=== PATIENT | female | born 1975 | race Caucasian/White ===

== ENCOUNTER 2018-01-23 19:43 | Emergency (ER) | payer OTHER ==
[~2018-01-23] VITALS: Ht 157.5 cm; Wt 70.3 kg
[~2018-01-23 19:43] MED LIST: DEPAKOTE ER250 MG; DILANTIN100 MG
[2018-01-23] MEDS ORDERED: DILANTIN100 MG PO ×2 (19:58→19:59)
[2018-01-23] MEDS ORDERED: ATORVASTATIN CA10 MG PO (19:59)
[2018-01-23] MEDS ORDERED: DEPAKOTE ER500 MG PO (19:59)
[2018-01-23] MEDS ORDERED: LEVETIRACETAM500 MG PO (20:00)
[2018-01-23] MEDS ORDERED: RISPERIDONE1 MG PO (20:00)
== END 2018-01-23 20:28 | disposition home or self-care (01) ==
LOC: ER 19:43
DX: M54.2 Cervicalgia (principal); S16.1XXA Strain of muscle, fascia and tendon at neck level, initial encounter; Y04.0XXA Assault by unarmed brawl or fight, initial encounter; Y92.008 Other place in unspecified non-institutional (private) residence as the place of occurrence of the external cause
CPT/HCPCS: 99281

== ENCOUNTER 2018-11-08 12:11 | Observation (INO) | payer OTHER ==
[~2018-11-08] VITALS: Ht 167.6 cm; Wt 53.1 kg
[~2018-11-08 12:11] MED LIST changes: +ATORVASTATIN CA10 MG PO; +DEPAKOTE ER500 MG PO; +DILANTIN100 MG PO; +LEVETIRACETAM500 MG PO; +RISPERIDONE1 MG PO
--- OUTSIDE RECORDS SUMMARY | 2018-11-08 12:13 | XMS REPORT ---
Author Author Admin, [place] Organization [facility] Address [address] [address] Phone Allergies, Adverse Reactions, Alerts Allergy Name Reaction Description Start Date Severity Status Provider No Known Allergies Calvin Zepeda MD Conditions or Problems Problem Name Problem Code Onset Date Status Entry Date Provider Comment Standard Description Annotate BIPOLAR AND RELATED DISORDER, D/T MED COND, W/ MIXED FEATURES Active Calvin Zepeda MD Mood disorder in conditions classified elsewhere CANNABIS USE DISORDER, MODERATE Active Calvin Zepeda MD Neglect of personal hygiene V69.8 Active Zuleika Blair MD Other problems related to lifestyle Poor dentition 520.9 Active Zuleika Blair MD Unspecified disorder of tooth development and eruption Head lice 132.0 Active Zuleika Blair MD Pediculus capitis [head louse] Bipolar disorder 296.80 Active Zuleika Blair MD Bipolar disorder, unspecified Epilepsy hx of 345.90 Active Zuleika Blair MD Epilepsy, unspecified, without mention of intractable epilepsy Hyperlipidemia 272.4 Active Zuleika Blair MD Other and unspecified hyperlipidemia Liver cirrhosis 571.5 Active Zuleika Blair MD Cirrhosis of liver without mention of alcohol Substance dependency 304.90 Active Zuleika Blair MD Unspecified drug dependence, unspecified use Current marijhuana user Medication List Medication Instructions Start Date Stop Date Generic Name NDC Status Provider Patient Instruction IVERMECTIN 3 MG ORAL TABLET 3 tablets once weekly for 2 weeks IVERMECTIN 26444598269 Active Zuleika Blair MD Active SKLICE 0.5 % EXTERNAL LOTION Apply sufficient amount (up to 1 tube) to completely cover dry scalp and hair.Leave for 10 minutes and wash. Use only one time only IVERMECTIN 55841040269 Active Zuleika Blair MD Active ATORVASTATIN CALCIUM 10 MG ORAL TABLET one tablet once daily ATORVASTATIN CALCIUM 02361288650 Active Zuleika Blair MD Active DILANTIN 100 MG ORAL CAPSULE 1 tablet in AM and 2 in PM PHENYTOIN SODIUM EXTENDED 34318185548 Active Zuleika Blair MD Active LEVETIRACETAM 500 MG ORAL TABLET one tablet twice daily LEVETIRACETAM 36037858688 Active Zuleika Blair MD Active RISPERDAL 2 MG ORAL TABLET Take 1 tab By Mouth Twice a Day RISPERIDONE 65121584846 Active Calvin Zepeda MD Active DEPAKOTE ER 500 MG ORAL TABLET EXTENDED RELEASE 24 HOUR TAKE 1 TABLET BY MOUTH TWICE A DAY DIVALPROEX SODIUM 88043819776 Active Zuleika Blair MD Active Vital Signs Date Name Value Unit Range Description blood pressure, diastolic 60 mm[Hg] BP san blood pressure, systolic 91 mm[Hg] BP sys height E&M 66 [in_us] Bdy height pulse rate E&M 106 /min Heart rate weight E&M 114 [lb_av] Weight Measured blood pressure, diastolic 64 mm[Hg] BP san blood pressure, systolic 92 mm[Hg] BP sys height E&M 66 [in_us] Bdy height pulse rate E&M 94 /min Heart rate weight E&M 113.38 [lb_av] Weight Measured blood pressure, diastolic 65 mm[Hg] BP san blood pressure, systolic 96 mm[Hg] BP sys height E&M 66 [in_us] Bdy height pulse rate E&M 110 /min Heart rate respiratory rate E&M 14 /min Resp rate temperature E&M 98.8 [degF] Body temperature weight E&M 116 [lb_av] Weight Measured blood pressure, diastolic 70 mm[Hg] BP san blood pressure, systolic 108 mm[Hg] BP sys height E&M 66 [in_us] Bdy height pulse rate E&M 98 /min Heart rate respiratory rate E&M 16 /min Resp rate temperature E&M 98.4 [degF] Body temperature weight E&M 118.40 [lb_av] Weight Measured blood pressure, diastolic 65 mm[Hg] BP san blood pressure, systolic 93 mm[Hg] BP sys height E&M 66 [in_us] Bdy height pulse rate E&M 97 /min Heart rate respiratory rate E&M 14 /min Resp rate temperature E&M 98.0 [degF] Body temperature weight E&M 115 [lb_av] Weight Measured Diagnostic Results Date Name Value Unit Range Description Lab Report: CBC With Differential/Platelet, Comp. Metabolic Panel (14), ... - Hematology hematocrit, blood 40.7 % 34.0-46.6 Lab Report: CBC With Differential/Platelet, Comp. Metabolic Panel (14), ... - Chemistry sodium, serum 141 mmol/L 134-144 Lab Report: CBC With Differential/Platelet, Comp. Metabolic Panel (14), ... - Hematology neutrophils as percent of blood leukocytes 61 % Not Estab. basophils as percent of blood leukocytes 1 % Not Estab. Lab Report: CBC With Differential/Platelet, Comp. Metabolic Panel (14), ... - Chemistry very low density lipoproteins 15 mg/dL 5-40 carbon dioxide, venous blood 24 mmol/L 20-29 hepatitis B surface antigen Negative Negative chloride, serum 102 mmol/L 96-106 triglyceride, serum, fasting 74 mg/dL 0-149 calcium, serum 9.0 mg/dL 8.7-10.2 urea nitrogen, blood 8 mg/dL 6-24 alanine aminotransferase (SGPT), serum 10 U/L 0-32 Lab Report: CBC With Differential/Platelet, Comp. Metabolic Panel (14), ... - Hematology mean corpuscular hemoglobin, RBC 30.0 pg 26.6-33.0 mean corpuscular hemoglobin concentration, RBC 33.2 G/DL % 31.5-35.7 Lab Report: CBC With Differential/Platelet, Comp. Metabolic Panel (14), ... - Chemistry protein, total, serum 6.4 g/dL 6.0-8.5 alkaline phosphatase, serum 85 U/L 39-117 Lab Report: CBC With Differential/Platelet, Comp. Metabolic Panel (14), ... - Hematology erythrocyte (RBC) count 4.50 X10E6/UL 10*6/mm3 3.77-5.28 hemoglobin, blood 13.5 g/dL 11.1-15.9 Lab Report: CBC With Differential/Platelet, Comp. Metabolic Panel (14), ... - Serology hepatitis C antibody, serum <0.1 0.0-0.9 Lab Report: CBC With Differential/Platelet, Comp. Metabolic Panel (14), ... - Chemistry Absolute Neutrophils 5.2 X10E3/UL 10*3/uL 1.4-7.0 LDL cholesterol, serum 126 mg/dL 0-99 urea nitrogen/creatinine ratio, serum 13 9-23 Lab Report: CBC With Differential/Platelet, Comp. Metabolic Panel (14), ... - Hematology lymphocytes as percent of blood leukocytes 25 % Not Estab. mean corpuscular volume, RBC 90 fL 79-97 Lab Report: CBC With Differential/Platelet, Comp. Metabolic Panel (14), ... - Chemistry HDL cholesterol, serum 76 mg/dL >39 Lab Report: CBC With Differential/Platelet, Comp. Metabolic Panel (14), ... - Genetics/fertility eGFR if 125 mL/min/1.73m2 >59 Lab Report: CBC With Differential/Platelet, Comp. Metabolic Panel (14), ... - Serology hepatitis B virus core antibody, IgM, PT, serum, quantitative Negative Negative Lab Report: CBC With Differential/Platelet, Comp. Metabolic Panel (14), ... - Hematology basophil count, absolute 0.1 x10E3/uL 0.0-0.2 monocytes as percent of blood leukocytes 9 % Not Estab. Lab Report: CBC With Differential/Platelet, Comp. Metabolic Panel (14), ... - Chemistry globulin, serum 2.7 1.5-4.5 creatinine, serum 0.63 mg/dL 0.57-1.00 albumin/globulin ratio, serum 1.4 1.2-2.2 Estimated Glomerular Filtration Rate (calc) 109 mL/min/1.73m2 >59 cholesterol, serum 217 mg/dL 100-199 Lab Report: CBC With Differential/Platelet, Comp. Metabolic Panel (14), ... - Serology hepatitis A antibody, IgM Negative Negative Lab Report: CBC With Differential/Platelet, Comp. Metabolic Panel (14), ... - Chemistry bilirubin, serum, total <0.2 mg/dL mg/dL 0.0-1.2 Lab Report: CBC With Differential/Platelet, Comp. Metabolic Panel (14), ... - Hematology Eosinophil Absolute Count 0.4 X10E3/UL 10*3/uL 0.0-0.4 eosinophils as percent of blood leukocytes 4 % Not Estab. Lab Report: CBC With Differential/Platelet, Comp. Metabolic Panel (14), ... - Chemistry blood glucose, random 106 mg/dL 65-99 aspartate aminotransferase (SGOT), serum 16 U/L 0-40 Lab Report: CBC With Differential/Platelet, Comp. Metabolic Panel (14), ... - Hematology red blood cell distribution width 15.0 % 12.3-15.4 leukocyte count, blood 8.5 X10E3/UL 10*3/mm3 3.4-10.8 Lab Report: CBC With Differential/Platelet, Comp. Metabolic Panel (14), ... - Chemistry potassium, serum 3.9 mmol/L 3.5-5.2 Lab Report: CBC With Differential/Platelet, Comp. Metabolic Panel (14), ... - Hematology monocyte count, blood, automated 0.8 X10E3/UL 10*3/uL 0.1-0.9 Lab Report: CBC With Differential/Platelet, Comp. Metabolic Panel (14), ... - Chemistry albumin, serum 3.7 g/dL 3.5-5.5 immature granulocytes, percentage of total cells, blood 0 % Not Estab. Lab Report: CBC With Differential/Platelet, Comp. Metabolic Panel (14), ... - Hematology platelet count 195 X10E3/UL 10*3/mm3 389-823 9986/06/04 lymphocyte count, blood, automated 2.1 X10E3/UL 10*3/mm3 0.7-3.1 Encounters Date Encounter Provider Code Facility 11:19:21 CDT Est Patient Exp Problem - 27474 Calvin Zepeda MD CPT-54525 [facility] 10:20:03 CDT Ofc Vst, Est Level III Zuleika Blair MD CPT-92268 [facility] 16:24:03 CDT Ofc Vst, Est Level III Zuleika Blair MD CPT-55052 [facility] 14:10:28 CDT Ofc Vst, New Level IV Zuleika Blair MD CPT-68428 [facility] Procedures Code Procedure Name Date Entry Date Standard Description CPT-81489 Diagnostic evaluation with medical - 89165 14:49:19 CDT
--- OUTSIDE RECORDS SUMMARY | 2018-11-08 12:13 | XMS REPORT ---
Author Author [facility] Address Unknown Phone Unavailable Care Team Providers Care Insurance Coder Name Role Phone Unavailable Unavailable Payers Payer Name Policy Type Policy Number Effective Date Expiration Date Problems This patient has no known problems. Allergies, Adverse Reactions, Alerts Allergy Name Allergy Type Status Severity Reaction(s) Onset Date Inactive Date Treating Clinician Comments No Known Allergies DA Active U 2018-08-04 00:00:00 No Known Allergies DA Active U 2017-02-14 00:00:00 Medications This patient has no known medications. Results Test Description Test Time Test Comments Text Results Atomic Results Result Comments VALPROIC ACID (DEPAKENE) 2018-08-04 15:47:00 VALPROIC ACID (DEPAKENE) (test code=VALP) 52.0 mcg/mL 50.0-100.0
[2018-11-08] MEDS ORDERED: SODIUM CHLORIDE 0.9% 1000ML 1,000 ML IV STA (12:23)
[2018-11-08 13:03] LABS: BASOPHILS % 0.4 % (0.0-1.0); EOSINOPHILS # (AUTO) 0.3 (0.0-0.4); EOSINOPHILS % 4.6 % (0.0-6.0); HEMATOCRIT 43.6 % (34.2-44.1); HEMOGLOBIN 14.8 g/dL (12.0-16.0); LYMPHOCYTES # (AUTO) 2.3 (1.0-3.2); LYMPHOCYTES % 32.6 % (18.0-39.1); MEAN CORPUSCULAR HEMOGLOBIN 30.8 pg (28-32); MEAN CORPUSCULAR HGB CONC 33.9 g/dL (31-35); MEAN CORPUSCULAR VOLUME 90.6 fL (81-99); MONOCYTES # (AUTO) 0.7 (0.2-0.8); MONOCYTES % 9.3 % (4.4-11.3); NEUTROPHILS # (AUTO) 3.8 (2.1-6.9); PLATELET COUNT 124 x10e3/uL (140-360); RED BLOOD COUNT 4.81 x10e6/uL (3.6-5.1); RED CELL DISTRIBUTION WIDTH 14.6 % (11.7-14.4)
[2018-11-08 13:19] LABS: BILIRUBIN,URINE MODERATE (NEGATIVE); CLARITY,URINE SL CLOUDY (CLEAR); COLOR,URINE YELLOW (YELLOW); LEUKOCYTE ESTERASE ,URINE NEGATIVE (NEGATIVE); NITRITE,URINE NEGATIVE (NEGATIVE); PROTEIN,URINE DIPSTICK TRACE (NEGATIVE); URINE UROBILINOGEN 0.2 mg/dL (0.2 - 1)
[2018-11-08 13:24] LABS: ALANINE AMINOTRANSFERASE 12 IU/L (0-55); ALBUMIN 3.5 g/dL (3.5-5.0); ALBUMIN/GLOBULIN RATIO 0.8 (0.8-2.0); ALKALINE PHOSPHATASE 80 IU/L (40-150); ANION GAP 20.1 mmol/L (8-16); BLOOD UREA NITROGEN 9 mg/dL (7-26); BUN/CREATININE RATIO 12 (6-25); CALCIUM 9.7 mg/dL (8.4-10.2); CARBON DIOXIDE 22 mmol/L (22-29); CHLORIDE 98 mmol/L (98-107); CREATININE, SERUM 0.76 mg/dL (0.57-1.11); EST GLOMERULAR FILTRATION RATE > 60 ML/MIN (60-); GLUCOSE 70 mg/dL (74-118); POTASSIUM 4.1 mmol/L (3.5-5.1); SODIUM 136 mmol/L (136-145)
[2018-11-08 13:24] LABS: AMPHETAMINES SCREEN,URINE NEGATIVE (NEGATIVE); BENZODIAZEPINES SCREEN,URINE NEGATIVE (NEGATIVE); KETONES,URINE 2+ (NEGATIVE); PHENCYCLIDINE SCREEN,URINE NEGATIVE (NEGATIVE)
[2018-11-08 13:31] LABS: INR 0.82; PROTHROMBIN TIME 11.8 seconds (11.9-14.5)
[2018-11-08 13:32] LABS: PARTIAL THROMBOPLASTIN TIME 32.1 seconds (23.8-35.5)
[2018-11-08 13:41] LABS: CREATINE KINASE MB 0.4 ng/mL (0-5.0)
--- NOTE | 2018-11-08 13:44 | Diagnostic Imaging Report ---
Exam: Chest radiograph Clinical History: Altered mental status Findings: The cardiomediastinal silhouette and lungs are normal. The regional skeleton and soft tissue are unremarkable. There is no evidence of pleural effusion or pneumothorax. Impression: No radiographic evidence of acute cardiopulmonary disease. Signed by: Dr. Bernabe Barroso MD on 11/08/2018 1:40 PM
[2018-11-08 14:01] LABS: AMORPHOUS SEDIMENT,URINE MODERATE (FEW); BACTERIA,URINE MODERATE /HPF; EPITHELIAL CELLS,URINE FEW /LPF; WBC,URINE (MAN) 0-5 /HPF (0-5)
--- NOTE | 2018-11-08 14:14 | Diagnostic Imaging Report ---
Examination: CT head without contrast Clinical Indication: Falls. Technique: Transaxial noncontrast images from the skull base through the vertex were obtained. Sagittal and coronal reformatted images were done. Dose modulation, iterative reconstruction, and/or weight based adjustment of the mA/kV was utilized to reduce the radiation dose to as low as reasonably achievable. Comparison: None. Findings: Scalp: No abnormalities. Bones: Intact. No fractures. No blastic or lytic lesions. Brain sulci: Mild cerebellar atrophy. The cerebrum is normal in volume. Ventricles: Normal in size and configuration. No hydrocephalus. Extra-axial space: No abnormalities. Parenchyma: No masses, hemorrhage, or acute or chronic cortical based vascular insults. Suprasellar region: No abnormalities. Craniocervical junction: The foramen magnum is patent. No Chiari one malformation. Impression: No acute intracranial abnormalities. Mild cerebellar volume loss. Signed by: Dr. Clara Sparrow M.D. on 11/08/2018 2:09 PM
--- NOTE | 2018-11-08 14:18 | Diagnostic Imaging Report ---
Examination: CT CERVICAL SPINE WO CONTRAST HISTORY:Neck injury after falls. COMPARISON:None. TECHNIQUE: Multidetector helical axial images were obtained without contrast from the foramen magnum to T1. Coronal and sagittal reformatted images were done. Bone and soft tissue windows were evaluated. Dose modulation, iterative reconstruction, and/or weight based adjustment of the mA/kV was utilized to reduce the radiation dose to as low as reasonably achievable. FINDINGS: Alignment:Normal alignment and lordosis. Vertebrae: Normal height and density. No acute fracture, infection or neoplasm. Disc space heights: Normal height. Caliber of spinal canal: Developmentally normal. Posterior fossa and craniocervical junction: Foramen magnum patent. No Chiari 1 malformation. Soft tissues: No abnormality. Degenerative changes: No disc bulge/ herniation or foraminal or canal stenosis. Visualized lung apices: No abnormalities. IMPRESSION: No abnormalities. Signed by: Dr. Clara Sparrow M.D. on 11/08/2018 2:14 PM
[2018-11-08 14:30] LABS: VALPROIC ACID 47 ug/mL (50-100)
--- NOTE | 2018-11-08 14:38 | NUR ---
PATIENTS SIGNIFICANT OTHER IS MR RAINEY - [id number]
[2018-11-08] MEDS ORDERED: ONDANSETRON HCL INJ 2MG/ML 2ML 2 MG/ML VIAL IV PRN (14:45)
--- OUTSIDE RECORDS SUMMARY | 2018-11-08 14:56 | XMS REPORT ---
Author Author Admin, [place] Organization [facility] Address [address] [address] Phone Allergies, Adverse Reactions, Alerts Allergy Name [...] tablets once weekly for 2 weeks IVERMECTIN 04061554929 Active Zuleika Blair MD Active SKLICE 0.5 % EXTERNAL LOTION Apply sufficient amount (up to 1 tube) to completely cover dry scalp and hair.Leave for 10 minutes and wash. Use only one time only IVERMECTIN 03873986095 Active Zuleika Blair MD Active ATORVASTATIN CALCIUM 10 MG ORAL TABLET one tablet once daily ATORVASTATIN CALCIUM 24792254038 Active Zuleika Blair MD Active DILANTIN 100 MG ORAL CAPSULE 1 tablet in AM and 2 in PM PHENYTOIN SODIUM EXTENDED 36247468777 Active Zuleika Blair MD Active LEVETIRACETAM 500 MG ORAL TABLET one tablet twice daily LEVETIRACETAM 26404522748 Active Zuleika Blair MD Active RISPERDAL 2 MG ORAL TABLET Take 1 tab By Mouth Twice a Day RISPERIDONE 06945944832 Active Calvin Zepeda MD Active DEPAKOTE ER 500 MG ORAL TABLET EXTENDED RELEASE 24 HOUR TAKE 1 TABLET BY MOUTH TWICE A DAY DIVALPROEX SODIUM 74090547109 Active Zuleika Blair MD Active Vital Signs [...] ... - Chemistry globulin, serum 2.7 1.5-4.5 albumin/globulin ratio, serum 1.4 1.2-2.2 creatinine, serum 0.63 mg/dL 0.57-1.00 Estimated Glomerular Filtration Rate (calc) 109 mL/min/1.73m2 [...] - Hematology platelet count 195 X10E3/UL 10*3/mm3 946-052 8202/06/04 lymphocyte count, blood, automated 2.1 X10E3/UL 10*3/mm3 0.7-3.1 Encounters Date Encounter Provider Code Facility 11:19:21 CDT Est Patient Exp Problem - 50829 Calvin Zepeda MD CPT-13789 [facility] 10:20:03 CDT Ofc Vst, Est Level III Zuleika Blair MD CPT-71701 [facility] 16:24:03 CDT Ofc Vst, Est Level III Zuleika Blair MD CPT-03721 [facility] 14:10:28 CDT Ofc Vst, New Level IV Zuleika Blair MD CPT-87868 [facility] Procedures Code Procedure Name Date Entry Date Standard Description CPT-89283 Diagnostic evaluation with medical - 39855 14:49:19 CDT
[2018-11-08 17:43] LABS: ANISOCYTOSIS SLIGHT; EOSINOPHILS % (MANUAL) 4 % (0-7); LYMPHOCYTES % (MANUAL) 45 % (19-48); MONOCYTES % (MANUAL) 7 % (3.4-9.0); NEUTROPHILS % (MANUAL) 44 % (40-74)
[2018-11-08 17:45] LABS: PLATELET ESTIMATE SLIGHTLY DECREASED; PLATELET MORPHOLOGY COMMENT NORMAL; RBC MORPHOLOGY COMMENT NORMAL
--- NOTE | 2018-11-08 17:55 | NUR ---
RECEIVED REPORT FROM ER AT THIS TIME.
[2018-11-08] MEDS: SODIUM CHLORIDE 0.9% 1000ML 1,000 ML IV SCH ×2 (17:59→22:33)
--- NOTE | 2018-11-08 18:45 | NUR ---
REPORT GIVEN TO ONCOMING NURSE. PATIENT HAS NOT COME UP TO ROOM YET.
[2018-11-08 19:33] VITALS: BP 79/51
--- NOTE | 2018-11-08 19:33 | NUR ---
Patient recieved to room 288 via stretcher from the er. bp 79/51 hr 82 rr 18 temp 97.8. admit assessment/history obtained. patient has difficulty answering questions properly. patient unable to give a good family history. ivf initiated per orders. patient place don seizure precautions and contact isolation for lice. patient on telemetry #3 (NSR) at this time. patient denies having any skin breakdown. patient remains in street clothes and refuses to take them off at this time. will attempt to better assess skin at later time. call armendariz placed within reach. sr up x 3. patient instructed to call for assistance when needed.
[2018-11-08 22:15] LABS: CREATINE KINASE MB 0.4 ng/mL (0-5.0)
[2018-11-09] VITALS: BP 95/58
--- NOTE | 2018-11-09 | NUR ---
patient oob to bathroom. patient soiled clothes before she could get to the bathroom. patient offered assistance to shower but patient refuses shower at this time.
--- NOTE | 2018-11-09 02:30 | NUR ---
patient appears to be resting quietly. no seizure activity noted. padded bed rails remain up for safety. bed alarm on and call armendariz in place. close monitoring continues.
[2018-11-09 04:00] VITALS: BP 92/58
[2018-11-09 05:45] LABS: BASOPHILS % 0.7 % (0.0-1.0); EOSINOPHILS # (AUTO) 0.3 (0.0-0.4); EOSINOPHILS % 5.9 % (0.0-6.0); HEMATOCRIT 37.5 % (34.2-44.1); HEMOGLOBIN 12.4 g/dL (12.0-16.0); LYMPHOCYTES # (AUTO) 2.1 (1.0-3.2); LYMPHOCYTES % 37.2 % (18.0-39.1); MEAN CORPUSCULAR HEMOGLOBIN 30.4 pg (28-32); MEAN CORPUSCULAR HGB CONC 33.1 g/dL (31-35); MEAN CORPUSCULAR VOLUME 91.9 fL (81-99); MONOCYTES # (AUTO) 0.6 (0.2-0.8); MONOCYTES % 10.4 % (4.4-11.3); NEUTROPHILS # (AUTO) 2.5 (2.1-6.9); NEUTROPHILS % 45.6 % (38.7-80.0); PLATELET COUNT 129 x10e3/uL (140-360); RED BLOOD COUNT 4.08 x10e6/uL (3.6-5.1); RED CELL DISTRIBUTION WIDTH 14.5 % (11.7-14.4)
[2018-11-09 06:04] LABS: ALANINE AMINOTRANSFERASE 9 IU/L (0-55); ALBUMIN 2.6 g/dL (3.5-5.0); ALBUMIN/GLOBULIN RATIO 0.8 (0.8-2.0); ALKALINE PHOSPHATASE 62 IU/L (40-150); ANION GAP 14.4 mmol/L (8-16); BLOOD UREA NITROGEN 9 mg/dL (7-26); BUN/CREATININE RATIO 15 (6-25); CALCIUM 8.4 mg/dL (8.4-10.2); CARBON DIOXIDE 26 mmol/L (22-29); CHLORIDE 101 mmol/L (98-107); CREATININE, SERUM 0.61 mg/dL (0.57-1.11); EST GLOMERULAR FILTRATION RATE > 60 ML/MIN (60-); GLUCOSE 74 mg/dL (74-118); MAGNESIUM 1.5 MG/DL (1.3-2.1); PHOSPHORUS 2.8 MG/DL (2.3-4.7); POTASSIUM 3.4 mmol/L (3.5-5.1); SODIUM 138 mmol/L (136-145)
[2018-11-09 06:21] LABS: EOSINOPHILS % (MANUAL) 4 % (0-7); LYMPHOCYTES % (MANUAL) 35 % (19-48); MONOCYTES % (MANUAL) 9 % (3.4-9.0); NEUTROPHILS % (MANUAL) 52 % (40-74); PLATELET ESTIMATE MODERATELY DECREASED; PLATELET MORPHOLOGY COMMENT FEW GIANT; RBC MORPHOLOGY COMMENT NORMAL
[2018-11-09 06:33] LABS: CREATINE KINASE MB 0.3 ng/mL (0-5.0)
[2018-11-09 07:42] VITALS: BP 99/56
[2018-11-09 08:00] VITALS: BP 99/56
[2018-11-09] MEDS ORDERED: POTASSIUM CHLORIDE 10MEQ EA PO NR (10:30)
[2018-11-09] MEDS ORDERED: DEPAKOTE DELAYED-RELEASE TAB 500 MG PO SCH (10:45)
[2018-11-09 11:49] VITALS: BP 96/58
[2018-11-09] MEDS: MIDODRINE 2.5 MG TAB PO SCH ×2 (12:00→17:04)
[2018-11-09] MEDS: LEVETIRACETAM 500 MG TAB PO SCH ×2 (12:00→17:04)
[2018-11-09] MEDS ORDERED: [UNRECOGNIZED DRUG - OTHER] TOP ONE (12:45)
[2018-11-09] MEDS ORDERED: PIPERONYL BUTOXIDE/PYRETHRINS 118 ML SHAMPOO TP SCH (14:00)
[2018-11-09 16:14] VITALS: BP 89/61
[2018-11-09] MEDS ORDERED: LEVETIRACETAM 500 MG TAB PO SCH (17:00)
[2018-11-09] MEDS ORDERED: DEPAKOTE ER 500MG TAB(ONCE DAILY) PO SCH (17:00)
[2018-11-09] MEDS ORDERED: RISPERIDONE 1 MG TAB PO SCH (17:00)
[2018-11-09] MEDS ORDERED: ATORVASTATIN 10 MG TAB PO SCH (21:00)
[2018-11-09] MEDS ORDERED: PHENYTOIN SODIUM EXT REL 100 MG CAP PO SCH (21:00)
--- NOTE | 2018-11-10 05:21 | Discharge Summary ---
FINAL DIAGNOSES: 1. Dilantin toxicity. 2. Baseline generalized decline with recurrent fall, bipolar disorder, anxiety, depression, and vascular dementia. HOSPITAL COURSE: The patient is a 43-year-old female with chronic epilepsy. The patient was on Dilantin. Apparently, her level was 27.5. The patient was taking the Lantus 100 mg in the morning and 200 mg in the evening both extensive release. The patient is otherwise stable. She is also on Keppra and Depakote. The patient's Dilantin was on hold, level was checked. Level is normalized. The patient will go home. Resume all home medication except for the Dilantin 100 mg ER in the morning. The patient need to follow up with her family doctor and repeat Dilantin level. Discussed with the patient, not much, not sure how much the patient understands. Discussed with the patient's RN, and follow up with neurologist as an outpatient. MD ALTON Bhatti/JACOBO /[id number]
== END 2018-11-09 17:17 | disposition home or self-care (01) ==
LOC: ER 12:11 → INTOOBSV 14:51 → ERHOLD 14:51 → MED/SURG3 19:17
PROVIDERS: ADMIT Internal Medicine; ATTEND Internal Medicine
DX: T42.0X1A Poisoning by hydantoin derivatives, accidental (unintentional), initial encounter (principal); F01.50 Vascular dementia, unspecified severity, without behavioral disturbance, psychotic disturbance, mood disturbance, and anxiety; Y92.009 Unspecified place in unspecified non-institutional (private) residence as the place of occurrence of the external cause; G40.909 Epilepsy, unspecified, not intractable, without status epilepticus; F41.9 Anxiety disorder, unspecified; M19.90 Unspecified osteoarthritis, unspecified site; F32.9 Major depressive disorder, single episode, unspecified
CPT/HCPCS: 36415 ×2; 70450; 71045; 72125; 80053 ×2; 80164; 80185 ×2; 80307; 80320; 81001; 82550 ×2; 82553 ×2; 83605; 83735; 83880; 84100; 84484 ×2; 84702; 85025 ×2; 85610; 85730; 87040; 87086; 93005; 97161; 99284; G0378 ×2; J7030 ×2

== ENCOUNTER 2018-11-11 18:08 | Emergency (ER) | payer OTHER ==
[~2018-11-11] VITALS: Ht 167.6 cm; Wt 53.1 kg
--- OUTSIDE RECORDS SUMMARY | 2018-11-11 18:11 | XMS REPORT ---
Author Author Admin, [place] Organization [facility] Address [address] [address] Phone Allergies, Adverse Reactions, Alerts Allergy Name [...] tablets once weekly for 2 weeks IVERMECTIN 69537588197 Active Zuleika Blair MD Active SKLICE 0.5 % EXTERNAL LOTION Apply sufficient amount (up to 1 tube) to completely cover dry scalp and hair.Leave for 10 minutes and wash. Use only one time only IVERMECTIN 35747578007 Active Zuleika Blair MD Active ATORVASTATIN CALCIUM 10 MG ORAL TABLET one tablet once daily ATORVASTATIN CALCIUM 24920289255 Active Zuleika Blair MD Active DILANTIN 100 MG ORAL CAPSULE 1 tablet in AM and 2 in PM PHENYTOIN SODIUM EXTENDED 42589548080 Active Zuleika Blair MD Active LEVETIRACETAM 500 MG ORAL TABLET one tablet twice daily LEVETIRACETAM 92321074335 Active Zuleika Blair MD Active RISPERDAL 2 MG ORAL TABLET Take 1 tab By Mouth Twice a Day RISPERIDONE 05372536449 Active Calvin Zepeda MD Active DEPAKOTE ER 500 MG ORAL TABLET EXTENDED RELEASE 24 HOUR TAKE 1 TABLET BY MOUTH TWICE A DAY DIVALPROEX SODIUM 44883100685 Active Zuleika Blair MD Active Vital Signs [...] 2.7 1.5-4.5 creatinine, serum 0.63 mg/dL 0.57-1.00 Estimated Glomerular Filtration Rate (calc) 109 mL/min/1.73m2 >59 albumin/globulin ratio, serum 1.4 1.2-2.2 cholesterol, serum 217 mg/dL 100-199 Lab Report: [...] Comp. Metabolic Panel (14), ... - Chemistry immature granulocytes, percentage of total cells, blood 0 % Not Estab. albumin, serum 3.7 g/dL 3.5-5.5 Lab Report: CBC With Differential/Platelet, Comp. Metabolic Panel (14), ... - Hematology platelet count 195 X10E3/UL 10*3/mm3 639-585 8855/06/04 lymphocyte count, blood, automated 2.1 X10E3/UL 10*3/mm3 0.7-3.1 Encounters Date Encounter Provider Code Facility 11:19:21 CDT Est Patient Exp Problem - 61086 Calvin Zepeda MD CPT-31550 [facility] 10:20:03 CDT Ofc Vst, Est Level III Zuleika Blair MD CPT-67658 [facility] 16:24:03 CDT Ofc Vst, Est Level III Zuleika Blair MD CPT-94330 [facility] 14:10:28 CDT Ofc Vst, New Level IV Zuleika Blair MD CPT-10692 [facility] Procedures Code Procedure Name Date Entry Date Standard Description CPT-05069 Diagnostic evaluation with medical - 85579 14:49:19 CDT
[2018-11-11] MEDS ORDERED: SODIUM CHLORIDE 0.9% 1000ML 1,000 ML IV STA (18:42)
[2018-11-11 18:59] LABS: BASOPHILS # (AUTO) 0.1 (0.0-0.1); BASOPHILS % 0.8 % (0.0-1.0); EOSINOPHILS # (AUTO) 0.3 (0.0-0.4); EOSINOPHILS % 4.2 % (0.0-6.0); HEMATOCRIT 38.5 % (34.2-44.1); HEMOGLOBIN 13.1 g/dL (12.0-16.0); LYMPHOCYTES # (AUTO) 1.9 (1.0-3.2); LYMPHOCYTES % 24.5 % (18.0-39.1); MEAN CORPUSCULAR HEMOGLOBIN 30.8 pg (28-32); MEAN CORPUSCULAR VOLUME 90.6 fL (81-99); MONOCYTES # (AUTO) 0.6 (0.2-0.8); MONOCYTES % 7.8 % (4.4-11.3); NEUTROPHILS # (AUTO) 4.8 (2.1-6.9); NEUTROPHILS % 62.3 % (38.7-80.0); PLATELET COUNT 177 x10e3/uL (140-360); RED BLOOD COUNT 4.25 x10e6/uL (3.6-5.1); RED CELL DISTRIBUTION WIDTH 14.8 % (11.7-14.4)
--- NOTE | 2018-11-11 19:02 | Diagnostic Imaging Report ---
Examination: CT head without contrast Clinical Indication: AMS. Technique: Transaxial noncontrast images from the skull base through the vertex were obtained. Sagittal and coronal reformatted images were done. Dose modulation, iterative reconstruction, and/or weight based adjustment of the mA/kV was utilized to reduce the radiation dose to as low as reasonably achievable. Comparison: CT head 11/08/18. Findings: Scalp: No abnormalities. Bones: Intact. No fractures. No blastic or lytic lesions. Brain sulci: Cerebellar atrophy. The cerebrum is normal in volume. Ventricles: Normal in size and configuration. No hydrocephalus. Extra-axial space: No abnormalities. Parenchyma: No masses, hemorrhage, or acute or chronic cortical based vascular insults. Suprasellar region: No abnormalities. Craniocervical junction: The foramen magnum is patent. No Chiari one malformation. Impression: No acute intracranial abnormalities. Mild cerebellar atrophy, stable. Signed by: DR Andre Blue M.D. on 11/11/2018 6:59 PM
[2018-11-11 19:09] LABS: INR 0.86; PARTIAL THROMBOPLASTIN TIME 33.4 seconds (23.8-35.5); PROTHROMBIN TIME 12.2 seconds (11.9-14.5)
[2018-11-11 19:19] LABS: ALANINE AMINOTRANSFERASE 8 IU/L (0-55); ALBUMIN 3.2 g/dL (3.5-5.0); ALBUMIN/GLOBULIN RATIO 0.9 (0.8-2.0); ALKALINE PHOSPHATASE 74 IU/L (40-150); ANION GAP 15.3 mmol/L (8-16); BLOOD UREA NITROGEN 12 mg/dL (7-26); BUN/CREATININE RATIO 17 (6-25); CALCIUM 9.9 mg/dL (8.4-10.2); CARBON DIOXIDE 27 mmol/L (22-29); CHLORIDE 101 mmol/L (98-107); CREATINE KINASE 48 IU/L (29-168); EST GLOMERULAR FILTRATION RATE > 60 ML/MIN (60-); GLUCOSE 95 mg/dL (74-118); POTASSIUM 3.3 mmol/L (3.5-5.1); SODIUM 140 mmol/L (136-145)
[2018-11-11 19:38] LABS: THYROID STIMULATING HORMONE 2.138 uIU/mL (0.350-4.940)
--- NOTE | 2018-11-11 19:43 | Diagnostic Imaging Report ---
Examination: Single AP view of the chest. COMPARISON: 11/08/2018 INDICATION: Altered metal status DISCUSSION: Lines/tubes: None. Lungs: The lungs are well inflated and clear. There is no evidence of pneumonia or pulmonary edema. Pleura: There is no pleural effusion or pneumothorax. Heart and mediastinum: The heart and the mediastinum are unremarkable. Bones and soft tissues: No acute bony abnormalities. IMPRESSION: 1. No acute cardiopulmonary abnormalities. Signed by: Dr. Mitchell Verdin M.D. on 11/11/2018 7:39 PM
[2018-11-11 20:24] LABS: BILIRUBIN,URINE NEGATIVE (NEGATIVE); CLARITY,URINE SL CLOUDY (CLEAR); COLOR,URINE YELLOW (YELLOW); KETONES,URINE NEGATIVE (NEGATIVE); LEUKOCYTE ESTERASE ,URINE NEGATIVE (NEGATIVE); NITRITE,URINE POSITIVE (NEGATIVE); PROTEIN,URINE DIPSTICK TRACE (NEGATIVE); URINE UROBILINOGEN 2 mg/dL (0.2 - 1)
[2018-11-11 20:39] LABS: AMPHETAMINES SCREEN,URINE NEGATIVE (NEGATIVE); BENZODIAZEPINES SCREEN,URINE NEGATIVE (NEGATIVE); PHENCYCLIDINE SCREEN,URINE NEGATIVE (NEGATIVE)
[2018-11-11 20:43] LABS: BACTERIA,URINE MANY /HPF; EPITHELIAL CELLS,URINE FEW /LPF; RBC,URINE 0-5 /HPF (0-5); WBC,URINE (MAN) 0-5 /HPF (0-5)
[2018-11-11 21:45] VITALS: BP 107/61
== END 2018-11-11 21:52 | disposition home or self-care (01) ==
LOC: ER 18:08
DX: F01.50 Vascular dementia, unspecified severity, without behavioral disturbance, psychotic disturbance, mood disturbance, and anxiety (principal); N30.90 Cystitis, unspecified without hematuria
CPT/HCPCS: 36415; 70450; 71045; 80053; 80185; 80307; 81001; 82140; 82550; 82553; 83880; 84443; 84484; 85025; 85610; 85730; 87086; 87186; 99283; J7030

== ENCOUNTER 2018-11-24 19:52 | Emergency (ER) | payer OTHER ==
[~2018-11-24] VITALS: Ht 167.6 cm; Wt 47.6 kg
--- OUTSIDE RECORDS SUMMARY | 2018-11-24 19:55 | XMS REPORT ---
Author Author Admin, [place] Organization [facility] Address [address] [place] [address] Phone ;[phone] Allergies, Adverse Reactions, Alerts Allergy Name Reaction Description Start Date Severity Status Provider No Known Allergies Annelise Grossman MA Conditions or Problems Problem Name Problem Code Onset Date Status Entry Date Provider Comment Standard Description Annotate Underweight Active Zuleika Blair MD Underweight Medication monitoring V58.69 Active Zuleika Blair MD Long-term (current) use of other medications BIPOLAR AND RELATED DISORDER, D/T MED COND, W/ MIXED FEATURES Active Calvin Zepeda MD Mood disorder in conditions classified elsewhere Neglect of personal hygiene V69.8 Active Zuleika [...] drug dependence, unspecified use Current [employer] user CANNABIS USE DISORDER, MODERATE Inactive Calvin Zepeda MD CANNABIS USE DISORDER, MODERATE Inactive Calvin Zepeda MD Medication List Medication Instructions Start Date Stop Date Generic Name NDC Status Provider Patient Instruction MIDODRINE HCL 2.5 MG ORAL TABLET one tablet once daily MIDODRINE HCL 02850529718 Active Zuleika Blair MD Active ATORVASTATIN CALCIUM 10 MG ORAL TABLET one tablet once daily ATORVASTATIN CALCIUM 35645587085 Active Zuleika Blair MD Active DILANTIN 100 MG ORAL CAPSULE 1 tablet in PM PHENYTOIN SODIUM EXTENDED 23730570817 Active Zuleika Blair MD Active LEVETIRACETAM 500 MG ORAL TABLET one tablet twice daily LEVETIRACETAM 08827710622 Active Zuleika Blair MD Active RISPERDAL 2 MG ORAL TABLET Take 1 tab By Mouth Twice a Day RISPERIDONE 64209782206 Active Calvin Zepeda MD Active DEPAKOTE ER 500 MG ORAL TABLET EXTENDED RELEASE 24 HOUR TAKE 1 TABLET BY MOUTH TWICE A DAY DIVALPROEX SODIUM 66890049218 Active Zuleika Blair MD Active IVERMECTIN 3 MG ORAL TABLET 3 tablets once weekly for 2 weeks IVERMECTIN 3 MG ORAL TABLET 189061 IVERMECTIN Inactive SKLICE 0.5 % EXTERNAL LOTION Apply sufficient amount (up to 1 tube) to completely cover dry scalp and hair.Leave for 10 minutes and wash. Use only one time only SKLICE 0.5 % EXTERNAL LOTION IVERMECTIN Inactive IVERMECTIN 3 MG ORAL TABLET 3 tablets once weekly for 2 weeks IVERMECTIN 34568547578 No Longer Active Zuleika Blair MD Active SKLICE 0.5 % EXTERNAL LOTION Apply sufficient amount (up to 1 tube) to completely cover dry scalp and hair.Leave for 10 minutes and wash. Use only one time only IVERMECTIN 21519774684 No Longer Active Zuleika Blair MD Active Vital Signs Date Name Value Unit Range Description blood pressure, diastolic 59 mm[Hg] BP san blood pressure, systolic 87 mm[Hg] BP sys height E&M 66 [in_us] Bdy height pulse rate E&M 116 /min Heart rate weight E&M 109 [lb_av] Weight Measured blood pressure, diastolic 66 mm[Hg] BP san blood pressure, systolic 98 mm[Hg] BP sys height E&M 66 [in_us] Bdy height pulse rate E&M 112 /min Heart rate respiratory rate E&M 16 /min Resp rate temperature E&M 98.2 [degF] Body temperature weight E&M 112.20 [lb_av] Weight Measured blood pressure, diastolic 60 mm[Hg] BP san [...] - Hematology platelet count 195 X10E3/UL 10*3/mm3 231-448 8206/06/04 lymphocyte count, blood, automated 2.1 X10E3/UL 10*3/mm3 0.7-3.1 Encounters Date Encounter Provider Code Facility 11:51:25 CDT Est Patient Exp Problem - 61610 Calvin Zepeda MD CPT-33071 [facility] 15:42:08 CDT Ofc Vst, Est Level III Zuleika Blair MD CPT-96436 [facility] 11:19:21 CDT Est Patient Exp Problem - 99754 Calvin Zepeda MD CPT-18988 [facility] 10:20:03 CDT Ofc Vst, Est Level III Zuleika Blair MD CPT-82658 [facility] 16:24:03 CDT Ofc Vst, Est Level III Zuleika Blair MD CPT-72889 [facility] 14:10:28 CDT Ofc Vst, New Level IV Zuleika Blair MD CPT-42474 [facility] Procedures Code Procedure Name Date Entry Date Standard Description CPT-31610 Diagnostic evaluation with medical - 78290 14:49:19 CDT
[2018-11-24] MEDS ORDERED: SODIUM CHLORIDE 0.9% 1000ML 1,000 ML IV STA (20:44)
[2018-11-24 21:22] LABS: BASOPHILS # (AUTO) 0.1 (0.0-0.1); BASOPHILS % 1.2 % (0.0-1.0); EOSINOPHILS # (AUTO) 0.5 (0.0-0.4); EOSINOPHILS % 5.5 % (0.0-6.0); HEMATOCRIT 42.3 % (34.2-44.1); HEMOGLOBIN 14.2 g/dL (12.0-16.0); LYMPHOCYTES # (AUTO) 2.1 (1.0-3.2); LYMPHOCYTES % 25.6 % (18.0-39.1); MEAN CORPUSCULAR HGB CONC 33.6 g/dL (31-35); MEAN CORPUSCULAR VOLUME 92.4 fL (81-99); MONOCYTES # (AUTO) 0.6 (0.2-0.8); MONOCYTES % 6.9 % (4.4-11.3); NEUTROPHILS # (AUTO) 4.9 (2.1-6.9); NEUTROPHILS % 60.7 % (38.7-80.0); PLATELET COUNT 123 x10e3/uL (140-360); RED BLOOD COUNT 4.58 x10e6/uL (3.6-5.1); RED CELL DISTRIBUTION WIDTH 15.1 % (11.7-14.4)
[2018-11-24 21:32] LABS: ANION GAP 13.9 mmol/L (8-16); BLOOD UREA NITROGEN 9 mg/dL (7-26); BUN/CREATININE RATIO 13 (6-25); CALCIUM 9.7 mg/dL (8.4-10.2); CARBON DIOXIDE 27 mmol/L (22-29); CHLORIDE 103 mmol/L (98-107); CREATININE, SERUM 0.69 mg/dL (0.57-1.11); EST GLOMERULAR FILTRATION RATE > 60 ML/MIN (60-); GLUCOSE 109 mg/dL (74-118); POTASSIUM 3.9 mmol/L (3.5-5.1); SODIUM 140 mmol/L (136-145)
[2018-11-24] MEDS ORDERED: PHENYTOIN 50 MG TAB PO ONE (23:00)
[2018-11-24 23:58] VITALS: BP 110/68
== END 2018-11-25 00:23 | disposition home or self-care (01) ==
LOC: ER 19:52
DX: M79.632 Pain in left forearm (principal); S50.12XA Contusion of left forearm, initial encounter; F31.71 Bipolar disorder, in partial remission, most recent episode hypomanic
CPT/HCPCS: 36415; 80048; 80185; 85025; 99283